=== PATIENT | male | born 1990 | race Caucasian/White ===

== ENCOUNTER 2016-12-21 20:30 | Emergency (ER) | payer SELFPAY ==
[~2016-12-21] VITALS: Ht 165.1 cm; Wt 63.0 kg
[2016-12-21] MEDS ORDERED: HYDROCODONE/ACETAMINOPHEN 5-325 MG TABLET PO ONE (21:15)
[2016-12-21] MEDS ORDERED: LIDOCAINE HCL 1% 10 ML VIAL INJ ONE (21:15)
[2016-12-21] MEDS ORDERED: CEPHALEXIN MONOHYDRATE 500 MG CAPSULE PO ONE (21:45)
[2016-12-21] MEDS ORDERED: PERTUSS(ACELL),DIPH,TET VAC/PF 0.5 ML VIAL IM ONE (22:15)
[2016-12-21 22:25] VITALS: BP 138/79
== END 2016-12-21 22:29 | disposition home or self-care (01) ==
LOC: EMS 20:31
DX: S62.667B Nondisplaced fracture of distal phalanx of left little finger, initial encounter for open fracture (principal); F12.90 Cannabis use, unspecified, uncomplicated; W20.8XXA Other cause of strike by thrown, projected or falling object, initial encounter; Y93.89 Activity, other specified; Y92.89 Other specified places as the place of occurrence of the external cause; Y99.8 Other external cause status
CPT/HCPCS: 29130; 73140; 90471; 90715; 99284; J3490

== ENCOUNTER 2018-03-31 12:35 | Emergency (ER) | payer MEDICAID ==
[~2018-03-31] VITALS: Ht 167.6 cm; Wt 63.6 kg
[2018-03-31] MEDS ORDERED: ACET-2247 PO (12:43)
[2018-03-31] MEDS ORDERED: IBUP-2354 PO (12:43)
[2018-03-31] MEDS ORDERED: ACETAMINOPHEN 500 MG TABLET PO ONE (14:15)
[2018-03-31 14:25] VITALS: BP 128/72
== END 2018-03-31 14:27 | disposition home or self-care (01) ==
LOC: EMS 12:35
DX: M95.0 Acquired deformity of nose (principal); F12.90 Cannabis use, unspecified, uncomplicated